=== PATIENT | female | born 1975 | race Caucasian/White ===

== ENCOUNTER 2017-11-26 18:26 | Emergency (ER) | payer BC ==
[~2017-11-26] VITALS: Ht 162.5 cm; Wt 81.6 kg
[~2017-11-26 18:26] MED LIST: ADVAIR 250/501 EA INH; ALBUTEROL0.09 MG/A1 IH; CIPROFLOXACIN500 MG PO; COREG6.25 MG PO; NORCO 10-325 T1 EACH PO; PROZAC20 MG PO; ROXICET 325 MG240 ML PO; SEASONIQUE1 TAB PO; VICODIN 5/500 505 MG PO
== END 2017-11-26 20:37 | disposition home or self-care (01) ==
LOC: ED 18:26
DX: G43.909 Migraine, unspecified, not intractable, without status migrainosus (principal); I10 Essential (primary) hypertension; Z98.890 Other specified postprocedural states; Z79.899 Other long term (current) drug therapy; Z91.041 Radiographic dye allergy status

== ENCOUNTER 2019-08-02 18:32 | Observation (INO) | payer BC ==
[~2019-08-02] VITALS: Ht 162.5 cm; Wt 85.8 kg
[2019-08-02 18:36] VITALS: BP 131/62
[2019-08-02 19:26] LABS: BASO # 0.1 10*3/uL (0.0-0.1); BASO % 0.8 % (0.0-1.0); EOS # 0.4 10*3/uL (0.0-0.4); EOS % 3.2 % (1.0-4.0); HEMATOCRIT 41.8 % (37.0-47.0); HEMOGLOBIN 14.5 g/dl (12.0-16.0); LYMPH # 3.6 10*3/uL (1.3-4.4); LYMPH % 27.7 % (27.0-41.0); MEAN CELL VOLUME 91.1 fl (81.0-99.0); MEAN CORPUSCULAR HGB 31.6 pg (27.0-31.0); MEAN CORPUSCULAR HGB CONC 34.7 g/dl (33.0-37.0); MEAN PLATELET VOLUME 9.9 fl (9.6-12.3); MONO # 0.7 10*3/uL (0.1-1.0); NEUT # 8.2 10*3/uL (2.3-7.9); PLATELET COUNT AUTOMATED 246 10*3/uL (130-400); RED BLOOD COUNT 4.59 10*6/uL (4.10-5.10); RED CELL DISTRI WIDTH 12.6 % (0-14.5)
[2019-08-02 19:39] LABS: ACT PARTIAL THROMBO TIME 27.3 SECONDS (20.0-32.1)
[2019-08-02 19:44] LABS: ALBUMIN 3.7 gm/dl (3.1-4.5); ALKALINE PHOSPHATASE 58 U/L (45-117); BUN 11 mg/dl (7-24); CHLORIDE 114 mmol/L (98-107); CREATININE 1.08 mg/dL (0.55-1.02); LIPASE 107 U/L (73-393); POTASSIUM 3.8 mmol/L (3.5-5.1); SGOT/AST 15 IU/L (3-35); SGPT/ALT 23 U/L (12-78); SODIUM 141 mmol/L (136-145)
[2019-08-02 19:48] LABS: TROPONIN I < 0.015 ng/ml (<0.045)
[2019-08-02 21:58] LABS: BACTERIA 1+; BILIRUBIN NEGATIVE (NEGATIVE); BLOOD NEGATIVE (NEGATIVE); CLARITY CLOUDY (CLEAR); COLOR YELLOW (YELLOW); EPITHELIAL CELLS TNTC; GLUCOSE NEGATIVE (NEGATIVE); KETONE NEGATIVE (NEGATIVE); LEUKO ESTERASE NEGATIVE (NEGATIVE); NITRITE NEGATIVE (NEGATIVE); PH 7.5 (5.0-9.0); RBC 0-2 rbc/hpf (0-2); UROBILINOGEN 0.2 E.U./dl (0.2-1.0); WBC 0-2 wbc/hpf (0-5)
--- NOTE | 2019-08-02 22:20 | NUR ---
PT SWAB FOR COVID 19. [facility] WALKED TO THE LAB. ROWAN SEAY RN.
[2019-08-02 22:21] VITALS: BP 130/70
[2019-08-02 23:35] VITALS: BP 118/64
--- NOTE | 2019-08-03 00:07 | NUR ---
CALLED INFORMED TO ORDER VQ SCAN, LABS IN AM, [place] TO START HOME MEDS.
[2019-08-03 01:05] VITALS: BP 131/86
--- NOTE | 2019-08-03 01:05 | NUR ---
A 44, admitted to , under the services of SASHA Sanchez DO with a diagnosis of DYSPNEA. Chief complaint is ASTHMA. Patient arrived via bed from ER. Monitor applied. Initial assessment completed. Vital signs taken and recorded. SASHA SANCHEZ DO notified of admission to the unit. Orders received. See assessment for past medical history, medications and allergies. Patient and/or family oriented to unit. [facility] visitation policy reviewed. Clothing/patient valuable form completed. YSLVIA MANZANARES
[2019-08-03 02:23] LABS: HEMATOCRIT 43.1 % (37.0-47.0); HEMOGLOBIN 14.6 g/dl (12.0-16.0); MEAN CELL VOLUME 91.5 fl (81.0-99.0); MEAN CORPUSCULAR HGB CONC 33.9 g/dl (33.0-37.0); PLATELET COUNT AUTOMATED 257 10*3/uL (130-400); RED BLOOD COUNT 4.71 10*6/uL (4.10-5.10); RED CELL DISTRI WIDTH 12.5 % (0-14.5); WHITE BLOOD COUNT 15.2 10*3/uL (4.8-10.8)
[2019-08-03 02:35] LABS: BUN 14 mg/dl (7-24); CHLORIDE 114 mmol/L (98-107); POTASSIUM 3.5 mmol/L (3.5-5.1); SODIUM 143 mmol/L (136-145)
[2019-08-03 02:52] LABS: BASOPHILS 1 % (0-1); PLATELET SUFFICIENCY NORMAL (NORMAL); TOTAL CELLS COUNTED 100 #CELLS
[2019-08-03 02:53] LABS: BURR CELLS FEW
--- NOTE | 2019-08-03 02:55 | NUR ---
INCREASED HEPARIN DRIP BY 2 PER PROTOCOL, VERIFIED WITH SHAHEEN CALVIN
[2019-08-03] MEDS ORDERED: VENT7GM INH ×2 (02:58→11:48)
[2019-08-03] MEDS ORDERED: TOPIRAMATE100 M2 PO (02:59)
[2019-08-03 08:00] VITALS: BP 128/84
--- NOTE | 2019-08-03 10:41 | NUR ---
DR. FALL NOTIFIED OF CONSULT
--- NOTE | 2019-08-03 10:41 | NUR ---
DR. GRIFFIN'S ANSWERING SERVICE NOTIFIED OF CONSULT.
[2019-08-03 10:50] LABS: ABG BASE EXCESS -4.6 mmol/L (-2.0-2.0); ARTERIAL BLOOD GAS PH 7.465 (7.35-7.45)
[2019-08-03] MEDS ORDERED: VENTOLIN 02.5 MG/3 M INH (11:48)
[2019-08-03] MEDS ORDERED: DOXYCYCLINE100 M3 PO (11:48)
[2019-08-03] MEDS ORDERED: PREDNISONE10 MG PO (11:48)
[2019-08-03] MEDS ORDERED: HYDROXYZINE HCL25 MG PO (11:48)
--- NOTE | 2019-08-03 13:10 | NUR ---
Discharge instructions reviewed with patient/family. Patient receptive and verbalizes understanding. Follow-up care arranged. Written instructions given to patient/family. TRACY LUNA
--- NOTE | 2019-08-03 14:52 | NUR ---
ATTEMPTED SERVERAL TIMES TO TALK WITH PT AND ALSO CALLED TO ASK ABOUT HOME NEEDS AFTER DISCHARGE. NEITHER IS ANSWERING PHONE.
== END 2019-08-03 13:10 | disposition home or self-care (01) ==
LOC: ED 18:32 → EDHOLD 22:40 → 5E 22:40
PROVIDERS: Internal Medicine; Internal Medicine Critical Care Medicine; Physician Assistant; ADMIT Internal Medicine
DX: J45.901 Unspecified asthma with (acute) exacerbation (principal); N17.0 Acute kidney failure with tubular necrosis; D72.829 Elevated white blood cell count, unspecified; E87.8 Other disorders of electrolyte and fluid balance, not elsewhere classified; G43.909 Migraine, unspecified, not intractable, without status migrainosus; R73.9 Hyperglycemia, unspecified; I10 Essential (primary) hypertension

== ENCOUNTER → 2019-08-17 | Outpatient (CLI) | payer BC ==
[~2019-08-17] MED LIST changes: +DOXYCYCLINE100 M3 PO; +HYDROXYZINE HCL25 MG PO; +PREDNISONE10 MG PO; +TOPIRAMATE100 M2 PO; +VENT7GM INH; +VENTOLIN 02.5 MG/3 M INH
== END | disposition home or self-care (01) ==
LOC: RAD 08:48
DX: K21.9 Gastro-esophageal reflux disease without esophagitis (principal)

== ENCOUNTER → 2020-06-24 | Outpatient (CLI) | payer BC ==
[~2020-06-24] MED LIST changes: +PREDNISONE20 M1 PO
[2020-06-24 09:20] LABS: HEMATOCRIT 41.9 % (37.0-47.0); MEAN CELL VOLUME 92.1 fl (81.0-99.0); MEAN CORPUSCULAR HGB 30.8 pg (27.0-31.0); MEAN CORPUSCULAR HGB CONC 33.4 g/dl (33.0-37.0); MEAN PLATELET VOLUME 10.1 fl (9.6-12.3); RED BLOOD COUNT 4.55 10*6/uL (4.10-5.10); RED CELL DISTRI WIDTH 12.7 % (0-14.5)
[2020-06-24 09:40] LABS: ALBUMIN 3.8 gm/dl (3.1-4.5); ALKALINE PHOSPHATASE 60 U/L (45-117); BUN 12 mg/dl (7-24); CHLORIDE 115 mmol/L (98-107); CHOLESTEROL 166 mg/dL (<200); CREATININE 0.95 mg/dL (0.55-1.02); FREE T4 0.83 ng/dl (0.76-1.46); HDL CHOLESTEROL 43 mg/dl (40-60); LDL CHOLESTEROL 97 mg/dL (9-159); POTASSIUM 3.8 mmol/L (3.5-5.1); SGOT/AST 9 IU/L (3-35); SGPT/ALT 21 U/L (12-78); SODIUM 144 mmol/L (136-145); TOTAL PROTEIN 6.8 gm/dL (6.4-8.2); TRIGLYCERIDES 130 mg/dl (<150); VLDL CHOLESTEROL 26 mg/dL (6-40)
[2020-06-24 10:41] LABS: VITAMIN D, 25-HYDROXY 18.5 ng/mL (30-100)
[2020-06-25 06:07] LABS: FOLLICLE STIMULATING HORMONE 7.2 mIU/mL (.); LUTEINIZING HORMONE 4.6 mIU/mL (.)
== END | disposition home or self-care (01) ==
LOC: LAB 08:54
PROVIDERS: ATTEND Family Medicine
DX: K21.9 Gastro-esophageal reflux disease without esophagitis (principal); E78.00 Pure hypercholesterolemia, unspecified; I10 Essential (primary) hypertension; E55.9 Vitamin D deficiency, unspecified; R51.9 Headache, unspecified

== ENCOUNTER → 2022-10-08 | Outpatient (CLI) | payer BC ==
[2022-10-08 13:20] LABS: HEMATOCRIT 43.5 % (37.0-47.0); MEAN CELL VOLUME 92.2 fl (81.0-99.0); MEAN CORPUSCULAR HGB 31.4 pg (27.0-31.0); MEAN PLATELET VOLUME 9.9 fl (9.6-12.3); RED BLOOD COUNT 4.72 10*6/uL (4.10-5.10); RED CELL DISTRI WIDTH 12.5 % (0-14.5); WHITE BLOOD COUNT 8.6 10*3/uL (4.8-10.8)
[2022-10-08 13:48] LABS: ALKALINE PHOSPHATASE 56 U/L (46-116); BUN 9 mg/dl (9-23); CHLORIDE 113 mmol/L (98-107); FREE T4 0.91 ng/dl (0.89-1.76); POTASSIUM 3.8 mmol/L (3.4-5.1); SGPT/ALT 16 U/L (10-49); THYROID STIM HORMONE (HS) 1.456 uIU/ml (0.550-4.780); TOTAL PROTEIN 6.7 gm/dL (6.0-8.0)
== END | disposition home or self-care (01) ==
LOC: LAB 12:28
PROVIDERS: ATTEND Family Medicine
DX: I10 Essential (primary) hypertension (principal); K21.9 Gastro-esophageal reflux disease without esophagitis; R60.0 Localized edema